=== PATIENT | female | born 1955 | race Native Hawaiian/Other Pacific Islander ===

== ENCOUNTER 2020-07-02 09:06 | Outpatient (CLI) | payer OTHER | END 2020-07-02 19:29 | disposition home or self-care (01) | LOC: MRI 09:06 | PROVIDERS: ATTEND General Practice | DX: G44.52 New daily persistent headache (NDPH) (principal) | CPT/HCPCS: 36415; 82565; 84520; A9576 ==

== ENCOUNTER 2022-12-09 12:25 | Outpatient (CLI) | payer OTHER | END 2022-12-09 20:16 | disposition home or self-care (01) | LOC: MRI 12:25 | PROVIDERS: ATTEND Student in an Organized Health Care Education/Training Program | DX: M54.12 Radiculopathy, cervical region (principal); M47.812 Spondylosis without myelopathy or radiculopathy, cervical region ==